=== PATIENT | female | born 1935 | race Caucasian/White ===

== ENCOUNTER 2016-10-31 15:37 | Emergency (ER) | payer MEDICARE ==
[2016-10-31] MEDS ORDERED: SODIUM CHLORIDE 0.9% (FLUSH) 10 ML SYG IV PRN (15:49)
--- NOTE | 2016-10-31 16:41 | RAD ---
NAME: FREIDA HAMMONDS REGISTERPROCEDURE: XR CHEST 1 VIEWORDER DATE: 10/31/2016 3:51 PM CSTACCESSION NUMBER: [id number] Clinical History: sob Indication: Same as above Comparison: 12/15/2010 Technique: Single projection of the chest was done. Findings: Note is again made of a dorsal column stimulator in the thoracic spinal canal. Benign calcification in the metastatic lung disease is again seen bilaterally. There are underlying changes of COPD. Stable right hilar and infrahilar lymphadenopathy is again noted . There are no discrete airspace infiltrates, pneumothoraces or pleural effusions. The pulmonary vascularity is normal. The cardiomediastinal contour is stable . Impression: There is no acute pleural-parenchymal process seen in the imaged lung matamoros. Location of Interpretation: Teleradiology Electronically signed by: Trae Ramachandran MD 10/31/2016 4:40 PM LEARNING TECHNOLOGIST
--- NOTE | 2016-10-31 16:58 | RAD ---
EXAM DESCRIPTION: Abdomen Flat Upright CLINICAL HISTORY: ABD FEEL FULL; PERITONEAL DIALYSIS; CONSTIPATION COMPARISON: September 11, 2014 FINDINGS: Supine and upright images of the abdomen were submitted. Dorsal stimulating catheters are noted within the right side of the abdomen extending into the thoracic spine. There is a catheter projecting over the left abdomen and pelvis. Patient is status post right hip arthroplasty. There is a moderate amount of stools within the colon without evidence of bowel obstruction. The upright images not included in the diaphragms. IMPRESSION: No acute abnormalities. Electronically signed by: Michele Reyna MD 10/31/2016 4:57 PM SALES ADMINISTRATOR
--- NOTE | 2016-10-31 17:00 | RAD ---
EXAM DESCRIPTION: Abdomen Lat/Decubitus CLINICAL HISTORY: ABD FEEL FULL; PERITONEAL DIALYSIS; CONSTIPATION COMPARISON: Same day earlier time IMPRESSION: Decubitus image of the abdomen was submitted. There is no free air. Electronically signed by: Michele Reyna MD 10/31/2016 4:59 PM PRODUCTION SUPPORT MANAGER
[2016-10-31 18:25] VITALS: BP 121/69; O2SAT 93
--- NOTE | 2016-10-31 18:35 | ED.PDOC ---
History of Present Illness - General Chief Complaint: Respiratory Problem Stated Complaint: shortness of breath Time Seen by Provider: 10/31/16 15:46 Source: patient, family Exam Limitations: no limitations Additional Information: PERITIONAL HOME DIALYSIS. DAUGHTER SAYS FOR PAST 3 D, DIALYSIS IS RETURNING 300 ML LESS THAN INFUSING, SO CONCERN FOR RETAINING FLUID. H/O HTN, CRF, DIALYSIS. 2 D FEELS INCR ABD FULLNESS, RESULTING IN SOB. CHRONIC CONSTIPATION , NO BM OVER 4 D. DIDN'T DO DIALYSIS THIS AM. - History of Present Illness Severity: moderate Possible Cause: unknown cause Improving Factors: nothing Worsening Factors: nothing Allergies/Adverse Reactions: Allergies NO KNOWN ALLERGY Allergy (Verified 09/11/14 16:59) Home Medications: Ambulatory Orders HYDROcodone 7.5MG/APAP 325MG [[place] 7.5/325] 1 tab PO Q4H PRN 09/11/14 Amitriptyline HCl 150 mg PO BEDTIME 10/31/16 Carvedilol 25 mg PO BID 10/31/16 Potassium Binder 1 - 2 each PO DAILY 10/31/16 Spironolactone 25 mg PO DAILY 10/31/16 Review of Systems - Review of Systems Constitutional: States: no symptoms reported EENTM: States: no symptoms reported Respiratory: States: orthopnea, short of breath. Denies: cough, wheezing Cardiology: Denies: chest pain, palpitations Gastrointestinal/Abdominal: States: constipation, other - ABD FULLNESS BUT NO PAIN. Genitourinary: States: no symptoms reported Musculoskeletal: States: no symptoms reported Skin: States: no symptoms reported Neurological: States: no symptoms reported Endocrine: States: no symptoms reported Hematologic/Lymphatic: States: no symptoms reported All other Systems: Reviewed and Negative Past Medical History (General) - Patient Medical History Hx Seizures: No Hx Stroke: No Hx Dementia: No Hx Asthma: No Hx of COPD: No Hx Cardiac Disorders: Yes - cardiac stents Hx Congestive Heart Failure: No Hx Pacemaker: No Hx Hypertension: Yes Hx Thyroid Disease: No Hx Diabetes: No Hx Gastroesophageal Reflux: No Hx Renal Disease: Yes - CRF - 1.5 yrs CAPD dialysis Hx Cancer: No Hx of HIV: No Hx Hepatitis C: No Hx MRSA: No - Vaccination History Hx Tetanus, Diphtheria Vaccination: Yes Hx Influenza Vaccination: Yes - 2015 Hx Pneumococcal Vaccination: Yes - 2014 - Social History Hx Tobacco Use: No Hx Chewing Tobacco Use: No Hx Alcohol Use: No Hx Substance Use: No Hx Substance Use Treatment: No Hx Depression: No Hx Physical Abuse: No Hx Emotional Abuse: No Hx Suspected Abuse: No - Female History Patient : No Family Medical History - Family History Mother Family History: No Known Living Status: Hx Family Cancer: Yes - breast Physical Exam - Physical Exam General Appearance: Alert, Well Hydrated Eyes, Ears, Nose, Throat Exam: PERRL/EOMI, normal ENT inspection Neck: non-tender, full range of motion Respiratory: chest non-tender, no respiratory distress, no accessory muscle use , crackles Cardiovascular/Chest: normal peripheral pulses, regular rate, rhythm, no murmur , other - MILD JVD. Peripheral Pulses: radial,right: 2+ Gastrointestinal/Abdominal: normal bowel sounds, non tender, other - ABDOMEN WITH POS FLUID WAVE. NTTP. NO G/R. Extremity: normal range of motion, non-tender, other - POS BLE EDEMA. Neurologic: fiberglass grinder II-XII nml as tested, oriented x 3 Skin Exam: normal color, warm/dry Lymphatic: no adenopathy Progress - Progress Progress: 10/31/16 19:25 CXR AND AXR NEG, EXCEPT SIGNIFICANT STOOL IN COLON. BNP 1340. DX: DYSPNEA, HYPOXIA, CONSTIPATION, CHF, PERITONEAL DIALYSIS NOT FUNCTIONING PROPERLY - TRANSFERRING VIA AMBULANCE TO [facility], WHERE PT'S PULMONARY FUNCTION TECHNOLOGIST (DR. CHERYL KUMARI) IS. DR JONES IN ER ACCEPTING. VSS AND PT NOT IN ABD PAIN THUS NOT CLINICALLY C/W SPONTANEOUS BACTERIAL PERITONITIS. [facility] Departure - Departure Clinical Impression: Heart failure, Hypoxia, Acute dyspnea, Constipation by delayed colonic transit , Peritoneal dialysis catheter dysfunction Disposition: Transfer to Hospital Departure Forms: ED Discharge - Pt. Copy, Patient Portal Self Enrollment Home Medications: Ambulatory Orders HYDROcodone 7.5MG/APAP 325MG [[place] 7.5/325] 1 tab PO Q4H PRN 09/11/14 Amitriptyline HCl 150 mg PO BEDTIME 10/31/16 Carvedilol 25 mg PO BID 10/31/16 Potassium Binder 1 - 2 each PO DAILY 10/31/16 Spironolactone 25 mg PO DAILY 10/31/16 Transfer to Outside Facility - Transfer Information Accepting Facility: [place], [place] Reason for Transfer: specialized care not available
[2016-10-31 19:36] VITALS: TEMP 99
--- NOTE | 2016-11-21 23:54 | RAD ---
EXAM DESCRIPTION: Abdomen Flat Upright CLINICAL HISTORY: ABD FEEL FULL; PERITONEAL DIALYSIS; CONSTIPATION COMPARISON: September 11, 2014 FINDINGS: Supine and upright images of the abdomen were submitted. Dorsal stimulating catheters are noted within the right side of the abdomen extending into the thoracic spine. There is a catheter projecting over the left abdomen and pelvis. Patient is status post right hip arthroplasty. There is a moderate amount of stools within the colon without evidence of bowel obstruction. The upright images not included in the diaphragms. IMPRESSION: No acute abnormalities. Electronically signed by: Michele Reyna MD 10/31/2016 4:57 PM GLOBAL DIRECTOR AIR AND CLIMATE CHANGE
--- NOTE | 2016-11-21 23:54 | RAD ---
NAME: FREIDA HAMMONDS REGISTERPROCEDURE: XR CHEST 1 VIEWORDER DATE: 10/31/2016 3:51 PM CSTACCESSION NUMBER: [id number] Clinical History: sob Indication: Same as above Comparison: 12/15/2010 Technique: Single projection of the chest was done. Findings: Note is again made of a dorsal column stimulator in the thoracic spinal canal. Benign calcification in the metastatic lung disease is again seen bilaterally. There are underlying changes of COPD. Stable right hilar and infrahilar lymphadenopathy is again noted . There are no discrete airspace infiltrates, pneumothoraces or pleural effusions. The pulmonary vascularity is normal. The cardiomediastinal contour is stable . Impression: There is no acute pleural-parenchymal process seen in the imaged lung matamoros. Location of Interpretation: Teleradiology Electronically signed by: Trae Ramachandran MD 10/31/2016 4:[address] PHOTOGRAPHER
--- NOTE | 2016-11-21 23:54 | RAD ---
EXAM DESCRIPTION: Abdomen Lat/Decubitus CLINICAL HISTORY: ABD FEEL FULL; PERITONEAL DIALYSIS; CONSTIPATION COMPARISON: Same day earlier time IMPRESSION: Decubitus image of the abdomen was submitted. There is no free air. Electronically signed by: Michele Reyna MD 10/31/2016 4:59 PM GMAT TUTOR
== END 2016-10-31 19:20 | disposition short-term general hospital (02) ==
LOC: ER 15:37
DX: T85.611A Breakdown (mechanical) of intraperitoneal dialysis catheter, initial encounter (principal); K59.01 Slow transit constipation; I13.2 Hypertensive heart and chronic kidney disease with heart failure and with stage 5 chronic kidney disease, or end stage renal disease; I50.9 Heart failure, unspecified; N18.6 End stage renal disease; Z99.2 Dependence on renal dialysis; Z98.61 Coronary angioplasty status; R09.02 Hypoxemia; Z79.899 Other long term (current) drug therapy

== ENCOUNTER 2017-05-24 10:25 | Emergency (ER) | payer MEDICARE ==
[2017-05-24 10:58] VITALS: TEMP 98.2
[2017-05-24] MEDS ORDERED: SODIUM CHLORIDE 0.9% (FLUSH) 10 ML SYG IV PRN (11:20)
[2017-05-24] MEDS ORDERED: ASPIRIN TABLET 325 MG TAB PO ONE (11:20)
--- NOTE | 2017-05-24 11:25 | ED.PDOC ---
History of Present Illness - General Chief Complaint: Respiratory Problem Stated Complaint: shortness of breath Time Seen by Provider: 05/24/17 11:17 Source: patient, family Exam Limitations: no limitations - History of Present Illness Initial Comments: PT BROUGHT TO THE ED BY HER DAUGHTER WHO STATES THAT PT CALLED HER THIS MORNING STATING THAT SHE NEEDED HELP. PTS DAUGHTER STATES THAT SHE NOTICED PTS SPEECH WAS SLURRED AT THAT TIME. SHE WENT TO PTS HOUSE TO FIND HER CONFUSED. SHE REPORTS PT HAD BEEN COMPLAINING OF HEADACHE ON TUESDAY AND TUESDAY AND HAS HAD INTERMITTENT EPISODES OF SOB AND COUGH. PT DENIES CHEST PAIN OR HEADACHE AT THIS TIME. Timing/Duration: intermittent Severity: moderate Improving Factors: rest Worsening Factors: movement Associated Symptoms: cough Allergies/Adverse Reactions: Allergies NO KNOWN ALLERGY Allergy (Verified 05/24/17 11:30) Home Medications: Ambulatory Orders Amitriptyline HCl 150 mg PO BEDTIME 10/31/16 Carvedilol 25 mg PO BID 10/31/16 Spironolactone 25 mg PO DAILY 10/31/16 Acetaminophen [Arthritis Pain] 650 mg PO PRN PRN 05/24/17 Ibuprofen [Motrin] 400 mg PO PRN PRN 05/24/17 Sevelamer Carbonate [Renvela] 1,600 mg PO TID 05/24/17 Review of Systems - Review of Systems Constitutional: Denies: chills, fever EENTM: Denies: blurred vision, nose congestion Respiratory: States: see HPI, cough, short of breath Cardiology: Denies: chest pain, palpitations Gastrointestinal/Abdominal: Denies: abdominal pain, nausea Genitourinary: Denies: dysuria, frequency Musculoskeletal: Denies: back pain, joint swelling Skin: Denies: change in color, dryness Neurological: States: see HPI, depressed - PT RECENTLY LOST OF 63 YEARS , headache. Denies: pre-existing deficit, tingling, weakness Past Medical History (General) - Patient Medical History Hx Seizures: No Hx Stroke: No Hx Dementia: No Hx Asthma: No Hx of COPD: No Hx Cardiac Disorders: Yes - cardiac stents Hx Congestive Heart Failure: No Hx Pacemaker: No Hx Hypertension: Yes Hx Thyroid Disease: No Hx Diabetes: No Hx Gastroesophageal Reflux: No Hx Renal Disease: Yes - CRF - 1.5 yrs CAPD dialysis Hx Cancer: No Hx of HIV: No Hx Hepatitis C: No Hx MRSA: No Surgical History: other - Vaccination History Hx Tetanus, Diphtheria Vaccination: Yes Hx Influenza Vaccination: Yes Hx Pneumococcal Vaccination: Yes - Social History Hx Tobacco Use: No Hx Chewing Tobacco Use: No Hx Alcohol Use: No Hx Substance Use: No Hx Substance Use Treatment: No Hx Depression: No Hx Physical Abuse: No Hx Emotional Abuse: No Hx Suspected Abuse: No - Activities of Daily Living Hospice Agency (if applicable):: None - Female History Patient is a Female of Child Bearing Age (10 -59 yrs old): No Patient : No Family Medical History - Family History Mother Family History: No Known Living Status: Hx Family Cancer: Yes - breast Physical Exam - Physical Exam General Appearance: Alert, Comfortable, No apparent distress, Well Developed, Well Groomed Ears, Nose, Throat: hearing grossly normal Neck: normal inspection Respiratory: lungs clear, normal breath sounds, no respiratory distress Cardiovascular/Chest: regular rate, rhythm, systolic murmur Gastrointestinal/Abdominal: non tender, soft, no organomegaly Back Exam: normal inspection Extremity: non-tender, normal inspection Neurologic: no motor/sensory deficits, alert, normal mood/affect, other - ORIENTED TO PERSON/PLACE. PT REPORTS IT IS 2015, SLIGHTLY SLURRED SPEECH, PT EXHIBITS AN EXPRESSIVE DYSPHASIA. Skin Exam: normal color, warm/dry Progress - Progress Progress: 05/24/17 12:40 PT RESTING COMFORTABLY, NO CHANGE IN NEUROLOGIC FINDINGS. LABS AND CT FINDINGS DISCUSSED. DISCUSSED PLAN TO TRANSFER TO [facility]. BP ELEVATED WILL ORDER IV LABETALOL. - Results/Orders Results/Orders: 05/24/17 11:20 Telemetry .ONCE Sodium Chloride 0.9% (Flush) [Saline Flush Syringe] 10 ml IV PRN PRN 05/24/17 11:21 UA [URINALYSIS] Stat 05/24/17 11:30 EKG STAT Laboratory Results WBC 8.0 K/mm3 (4.8-10.8) 05/24/17 11:40 RBC 3.37 M/mm3 (4.20-5.40) L 05/24/17 11:40 Hgb 11.7 gm/dL (12.0-16.0) L 05/24/17 11:40 Hct 35.1 % (36.0-47.0) L 05/24/17 11:40 MCV 104.1 fl (81.0-99.0) H 05/24/17 11:40 MCH 34.7 pg (27.0-31.0) H 05/24/17 11:40 MCHC 33.3 g/dL (33.0-37.0) 05/24/17 11:40 RDW 15.5 % (11.5-14.5) H 05/24/17 11:40 Plt Count 166 K/mm3 (130-400) 05/24/17 11:40 MPV 8.1 fl (7.40-10.4) 05/24/17 11:40 Absolute Neuts (auto) 5.10 K/uL (1.8-6.8) 05/24/17 11:40 Absolute Lymphs (auto) 2.20 K/uL (1.0-3.4) 05/24/17 11:40 Absolute Monos (auto) 0.40 K/uL (0.2-0.8) 05/24/17 11:40 Absolute Eos (auto) 0.30 K/uL (0.0-0.4) 05/24/17 11:40 Absolute Basos (auto) 0.00 K/uL (0.0-0.1) 05/24/17 11:40 Neutrophils % 63.6 % (42.0-78.0) 05/24/17 11:40 Lymphocytes % 27.0 % (20.0-50.0) 05/24/17 11:40 Monocytes % 5.4 % (2.0-9.0) 05/24/17 11:40 Eosinophils % 3.4 % (1.0-5.0) 05/24/17 11:40 Basophils % 0.6 % (0.0-2.0) 05/24/17 11:40 PT 12.6 SECONDS (9.4-12.5) H 05/24/17 11:40 INR 1.120 05/24/17 11:40 PTT (SP) 31.1 SECONDS (25.1-36.5) 05/24/17 11:40 Sodium 138 mmol/L (135-145) 05/24/17 11:40 Potassium 4.6 mmol/L (3.6-5.0) 05/24/17 11:40 Chloride 97 mmol/L (101-111) L 05/24/17 11:40 Carbon Dioxide 29 mmol/L (21-31) 05/24/17 11:40 Anion Gap 16.6 (12-18) 05/24/17 11:40 BUN 47 mg/dL (7-18) H 05/24/17 11:40 Creatinine 5.88 mg/dL (0.6-1.3) H 05/24/17 11:40 BUN/Creatinine Ratio 8.0 (10-20) L 05/24/17 11:40 POC Glucose 123 mg/dL (70-105) H 05/24/17 11:40 Random Glucose 124 mg/dL (70-105) H 05/24/17 11:40 Serum Osmolality 289.4 mOsm/L (275-295) 05/24/17 11:40 Calcium 9.4 mg/dL (8.4-10.2) 05/24/17 11:40 Total Bilirubin 0.4 mg/dL (0.2-1.0) 05/24/17 11:40 AST 19 IU/L (10-42) 05/24/17 11:40 ALT 10 IU/L (10-60) 05/24/17 11:40 Alkaline Phosphatase 100 IU/L (42-121) 05/24/17 11:40 Creatine Kinase 27 IU/L (26-140) 05/24/17 11:40 CK-MB (CK-2) 1.8 ng/mL (0.0-4.4) 05/24/17 11:40 CK-MB (CK-2) % Not Reportable 05/24/17 11:40 Troponin I 0.03 ng/mL (0.01-0.05) 05/24/17 11:40 B-Natriuretic Peptide 3850.0 pg/ml (0-100) H* 05/24/17 11:40 Serum Total Protein 7.2 gm/dL (6.4-8.2) 05/24/17 11:40 Albumin 3.0 g/dl (3.2-5.5) L 05/24/17 11:40 Globulin 4.2 gm/dL (2.3-3.5) H 05/24/17 11:40 Albumin/Globulin Ratio 0.7 (1.1-1.9) L 05/24/17 11:40 - EKG/XRAY/CT EKG: Sinus - @66BPM, NL AXIS, RBBB, no ST T wave changes, Changed from - 10/31/16 , RBBB IS NEW - Additional EKG/XRAY/Consults XRAY #2: chest Comments: PULMONARY VASCULAR CONGESTION, SMALL RIGHT PLEURAL EFFUSION. Departure - Departure Clinical Impression: Cerebral vascular accident, Chronic renal disease, Uncontrolled hypertension Time of Disposition: 12:54 Disposition: Transfer to Hospital Condition: Fair Departure Forms: ED Discharge - Pt. Copy, Patient Portal Self Enrollment Referrals: Simone Olmos MD [Primary Care Provider] - 1-2 Weeks Home Medications: Ambulatory Orders Amitriptyline HCl 150 mg PO BEDTIME 10/31/16 Carvedilol 25 mg PO BID 10/31/16 Spironolactone 25 mg PO DAILY 10/31/16 Acetaminophen [Arthritis Pain] 650 mg PO PRN PRN 05/24/17 Ibuprofen [Motrin] 400 mg PO PRN PRN 05/24/17 Sevelamer Carbonate [Renvela] 1,600 mg PO TID 05/24/17 Transfer to Outside Facility - Transfer Information Accepting Provider:: DR. GONZALES Accepting Facility: [facility] Reason for Transfer: required specialist not available
--- NOTE | 2017-05-24 11:38 | RAD ---
EXAM DESCRIPTION: Chest,1 View CLINICAL HISTORY: Shortness of breath FINDINGS/ IMPRESSION: Comparison 10/31/2016 Interval development of cardiomegaly with vascular congestion and interstitial edema. Small right pleural effusion. Calcified granuloma in the right upper lobe. Electronically signed by: Simone Murphy MD 05/24/2017 11:36 AM CDT
--- NOTE | 2017-05-24 12:23 | CT ---
EXAM DESCRIPTION: CT head without contrast CLINICAL HISTORY: Confusion. Altered mental status. Altered level of consciousness. COMPARISON: None. TECHNIQUE: Noncontrast spiral CT of the brain. This exam was performed according to our departmental dose-optimization program, which includes automated exposure control, adjustment of the mA and/or kV according to patient size and/or use of iterative reconstruction technique FINDINGS: No intracranial hemorrhage, diagnostic acute cortical infarction or mass lesion. Decreased density in the white matter bilateral cerebral hemispheres, nonspecific likely remote microvascular ischemia. Subtle questionable asymmetric lower density left periventricular adjacent to the body of the lateral ventricle extending down to posterior column internal capsule, age-indeterminate ischemia. Remote lacunar infarct in the peripheral right cerebellar hemispheres and left paramedian superior cerebellar hemisphere Ventricles are normal in size and configuration atherosclerotic vascular calcifications in the cavernous carotid arteries and left vertebral artery. No calvarial or skullbase fracture. No fluid in the paranasal sinuses or mastoid air cells IMPRESSION: White matter disease, nonspecific likely remote microvascular ischemia. Remote infarcts in the cerebellum with regions of encephalomalacia. Subtle questionable asymmetric hypodensity left periventricular extending into the internal capsule. CT is insensitive for early evaluation of acute stroke. If there is clinical concern for acute ischemia, an MRI may be considered. Electronically signed by: Simone Murphy MD 05/24/2017 12:22 PM CDT
[2017-05-24] MEDS ORDERED: LABETALOL INJ 5 MG/ML VIAL IV ONE (12:38)
[2017-05-24] MEDS ORDERED: MECLIZINE HCL 12.5 MG TAB PO ONE (13:27)
[2017-05-24] MEDS ORDERED: ONDANSETRON INJ 4 MG/2 ML VIAL IV ONE (13:28)
[2017-05-24 13:40] VITALS: BP 189/83; O2SAT 93
== END 2017-05-24 13:55 | disposition short-term general hospital (02) ==
LOC: ER 10:25
DX: I63.9 Cerebral infarction, unspecified (principal); I12.0 Hypertensive chronic kidney disease with stage 5 chronic kidney disease or end stage renal disease; N18.6 End stage renal disease; Z98.61 Coronary angioplasty status; F32.9 Major depressive disorder, single episode, unspecified; Z79.899 Other long term (current) drug therapy
CPT/HCPCS: 36415; 70450; 71010; 80053; 82550; 82553; 82948; 83880; 84484; 85025; 85610; 85730; 93005; J2405

== ENCOUNTER → 2017-06-17 | Outpatient (CLI) | payer MEDICARE | LOC: GT 06:49 | PROVIDERS: ATTEND Family Medicine | DX: E78.00 Pure hypercholesterolemia, unspecified (principal) ==

== ENCOUNTER 2017-08-11 02:35 | Emergency (ER) | payer MEDICARE ==
[2017-08-11] MEDS ORDERED: NITROGLYCERIN 0.4 MG 25 EA TAB SL ONE (03:08)
[2017-08-11] MEDS ORDERED: ASPIRIN (CHEWABLE) 81 MG TAB PO ONE (03:08)
--- NOTE | 2017-08-11 03:12 | ED.PDOC ---
History of Present Illness - General Chief Complaint: Cardiovascular Problem Stated Complaint: chest feels funny, shortness of breath Time Seen by Provider: 08/11/17 02:45 Source: patient, RN notes reviewed, Vital Signs reviewed Exam Limitations: no limitations - History of Present Illness Initial Comments: Patient comes in with c/o chest pressure, SOB and nausea that started @ ~ 21:30 yesterday. She has been having these symptoms intermittently for the past 3 weeks. She did see the Nurse Practitioner today @ her PCP office. who gave her nitroglycerine to use as needed. She did not take any with her chest pressure tonight. Timing/Duration: 4-6 hours Severity/Quality: mild, pressure Location: substernal Chest Pain Radiation: no radiation Activities at Onset: rest Prior Chest Pain/Cardiac Workup: other - CHF Improving Factors: nothing Worsening Factors: nothing Nitro Today/Relief: no nitro taken today Aspirin Treatment Today: 81 mg x 1, provided at home Associated Symptoms: nausea/vomiting, shortness of breath Allergies/Adverse Reactions: Allergies NO KNOWN ALLERGY Allergy (Verified 08/11/17 03:10) Home Medications: Ambulatory Orders Amitriptyline HCl 150 mg PO BEDTIME 10/31/16 Carvedilol 25 mg PO BID 10/31/16 Spironolactone 25 mg PO DAILY 10/31/16 Acetaminophen [Arthritis Pain] 650 mg PO PRN PRN 05/24/17 Ibuprofen [Motrin] 400 mg PO PRN PRN 05/24/17 Sevelamer Carbonate [Renvela] 1,600 mg PO TID 05/24/17 Review of Systems - Review of Systems Constitutional: Denies: diaphoresis, malaise EENTM: States: no symptoms reported Respiratory: States: see HPI, short of breath. Denies: cough Cardiology: States: see HPI. Denies: chest pain, palpitations Gastrointestinal/Abdominal: States: see HPI, nausea. Denies: abdominal pain Musculoskeletal: States: no symptoms reported Skin: States: no symptoms reported Neurological: States: no symptoms reported All other Systems: No Change from Baseline Past Medical History (General) - Patient Medical History Hx Seizures: No Hx Stroke: No Hx Dementia: No Hx Asthma: No Hx of COPD: No Hx Cardiac Disorders: Yes - cardiac stents Hx Congestive Heart Failure: No Hx Pacemaker: No Hx Hypertension: Yes Hx Thyroid Disease: No Hx Diabetes: No Hx Gastroesophageal Reflux: No Hx Renal Disease: Yes - CRF - 1.5 yrs CAPD dialysis Hx Cancer: No Hx of HIV: No Hx Hepatitis C: No Hx MRSA: No - Vaccination History Hx Tetanus, Diphtheria Vaccination: Yes Hx Influenza Vaccination: Yes Hx Pneumococcal Vaccination: Yes - Social History Hx Tobacco Use: No Hx Chewing Tobacco Use: No Hx Alcohol Use: No Hx Substance Use: No Hx Substance Use Treatment: No Hx Depression: No Hx Physical Abuse: No Hx Emotional Abuse: No Hx Suspected Abuse: No - Female History Patient : No Family Medical History - Family History Mother Family History: No Known Living Status: Hx Family Cancer: Yes - breast Physical Exam - Physical Exam General Appearance: Alert, Comfortable, No apparent distress, Well Developed, Well Groomed, Well Hydrated, Well Nourished Neck: supple, normal inspection Respiratory: no respiratory distress, no accessory muscle use, crackles - Bilateral bases Cardiovascular/Chest: regular rate, rhythm, no gallop, no JVD, systolic murmur Extremity: normal range of motion, normal inspection Neurologic: alert, normal mood/affect, oriented x 3 Skin Exam: normal color, warm/dry Progress - Progress Progress: 08/11/17 05:01 Lasix 40mg IV given - Results/Orders Results/Orders: Laboratory Tests 08/11/17 08/11/17 03:55 03:55 WBC 7.9 RBC 3.39 L Hgb 12.0 Hct 35.9 L MCV 105.9 H MCH 35.3 H MCHC 33.6 RDW 16.8 H Plt Count 169 MPV 8.2 Absolute Neuts (auto) 4.90 Absolute Lymphs (auto) 2.10 Absolute Monos (auto) 0.60 Absolute Eos (auto) 0.20 Absolute Basos (auto) 0.10 Neutrophils % 62.1 Lymphocytes % 26.3 Monocytes % 7.6 Eosinophils % 2.8 Basophils % 1.2 Normal RBC Morphology 2+macrocytosis Sodium 137 Potassium 4.8 Chloride 96 L Carbon Dioxide 30 Anion Gap 15.8 BUN 41 H Creatinine 5.17 H BUN/Creatinine Ratio 7.9 L Random Glucose 96 Serum Osmolality 283.8 Calcium 9.5 Total Bilirubin 0.5 AST 16 ALT 11 Alkaline Phosphatase 99 Creatine Kinase 25 L CK-MB (CK-2) 1.7 Troponin I 0.02 B-Natriuretic Peptide > 5000.0 H* Serum Total Protein 7.0 Albumin 3.0 L Globulin 4.0 H Albumin/Globulin Ratio 0.8 L - EKG/XRAY/CT EKG: Jefry, Sinus, no ST T wave changes, Unchanged from - 10/31/16 Comments: Rate 57 XRAY: chest - Cardiomegaly with pulmonary vascular congestion Departure - Departure Clinical Impression: Congestive heart failure Qualifiers: Congestive heart failure type: unspecified congestive heart failure type Congestive heart failure chronicity: acute on chronic Qualified Code(s): I50.9 - Heart failure, unspecified Time of Disposition: 05:04 Disposition: Transfer to Hospital Condition: Poor Departure Forms: ED Discharge - Pt. Copy, Patient Portal Self Enrollment Referrals: Simone Olmos MD [Primary Care Provider] - 1-2 Weeks Home Medications: Ambulatory Orders Amitriptyline HCl 150 mg PO BEDTIME 10/31/16 Carvedilol 25 mg PO BID 10/31/16 Spironolactone 25 mg PO DAILY 10/31/16 Acetaminophen [Arthritis Pain] 650 mg PO PRN PRN 05/24/17 Ibuprofen [Motrin] 400 mg PO PRN PRN 05/24/17 Sevelamer Carbonate [Renvela] 1,600 mg PO TID 05/24/17 Transfer to Outside Facility - Transfer Information Accepting Provider:: Dr. Lynne Miguel Accepting Facility: [facility] Reason for Transfer: required specialist not available - Dialysis
--- NOTE | 2017-08-11 03:42 | RAD ---
EXAM DESCRIPTION: Chest,1 View CLINICAL HISTORY: CP w/ SOB COMPARISON: 05/24/2017 FINDINGS: Single frontal view of the chest. Cardiomegaly. Leads overlie the chest. Pulmonary vascular congestion. Blunting of the right costophrenic angle. Dorsal generator leads. No consolidation, pneumothorax, or pleural effusion. No displaced rib fractures identified. Upper abdominal soft tissues are unremarkable. IMPRESSION: 1. Cardiomegaly with pulmonary vascular congestion. Electronically signed by: Tam Rincon 08/11/2017 3:41 AM COMMERCIAL ILLUSTRATOR
[2017-08-11 04:15] VITALS: O2SAT 92
[2017-08-11] MEDS ORDERED: FUROSEMIDE INJ 40 MG/4 ML VIAL IV ONE (04:33)
[2017-08-11 07:11] VITALS: BP 182/66; TEMP 98.2
== END 2017-08-11 06:32 | disposition short-term general hospital (02) ==
LOC: ER 02:35
DX: I13.2 Hypertensive heart and chronic kidney disease with heart failure and with stage 5 chronic kidney disease, or end stage renal disease (principal); N18.6 End stage renal disease; I50.9 Heart failure, unspecified; Z99.2 Dependence on renal dialysis; Z98.61 Coronary angioplasty status
CPT/HCPCS: 71010; 80053; 82550; 82553; 83880; 84484; 85025; 93005; J1940

== ENCOUNTER 2017-08-24 17:26 | Emergency (ER) | payer MEDICARE ==
[2017-08-24 17:36] VITALS: TEMP 98.7; O2SAT 98
[2017-08-24] MEDS ORDERED: ACETAMINOPHEN 500 MG TAB PO ONE (17:54)
--- NOTE | 2017-08-24 17:57 | ED.PDOC ---
History of Present Illness - General Chief Complaint: Trauma Stated Complaint: fall Time Seen by Provider: 08/24/17 17:46 Source: patient Exam Limitations: no limitations - History of Present Illness Initial Comments: PT REPORTS FALLING AND HITTING HER HEAD ON THE FLOOR WHILE ATTEMPTING TO TRANSFER INTO A WHEELCHAIR AFTER DIALYSIS. PT DENIES LOC BUT DOES REPORT A MILD HEADACHE. PT DENIES DIZZINESS PRIOR TO THE FALL. Timing/Duration: 1/2 hour Severity: moderate Improving Factors: nothing Worsening Factors: nothing Associated Symptoms: headaches Allergies/Adverse Reactions: Allergies NO KNOWN ALLERGY Allergy (Verified 08/11/17 03:10) Home Medications: Ambulatory Orders Amitriptyline HCl 150 mg PO BEDTIME 10/31/16 Carvedilol 25 mg PO BID 10/31/16 Spironolactone 25 mg PO DAILY 10/31/16 Acetaminophen [Arthritis Pain] 650 mg PO PRN PRN 05/24/17 Ibuprofen [Motrin] 400 mg PO PRN PRN 05/24/17 Sevelamer Carbonate [Renvela] 1,600 mg PO TID 05/24/17 Review of Systems - Review of Systems Constitutional: Denies: chills, fever EENTM: Denies: nose congestion, throat pain Respiratory: Denies: cough, short of breath Cardiology: Denies: chest pain, palpitations, syncope Gastrointestinal/Abdominal: Denies: nausea, vomiting Genitourinary: Denies: dysuria, frequency Musculoskeletal: Denies: joint pain, joint swelling Skin: Denies: change in color, dryness Neurological: States: see HPI, headache. Denies: numbness, paresthesia Endocrine: States: no symptoms reported Hematologic/Lymphatic: States: no symptoms reported Past Medical History (General) - Patient Medical History Hx Seizures: No Hx Stroke: No Hx Dementia: No Hx Asthma: No Hx of COPD: No Hx Cardiac Disorders: Yes - cardiac stents Hx Congestive Heart Failure: No Hx Pacemaker: No Hx Hypertension: Yes Hx Thyroid Disease: No Hx Diabetes: No Hx Gastroesophageal Reflux: No Hx Renal Disease: Yes - CRF - 1.5 yrs CAPD dialysis Hx Cancer: No Hx of HIV: No Hx Hepatitis C: No Hx MRSA: No Surgical History: other - Vaccination History Hx Tetanus, Diphtheria Vaccination: Yes Hx Influenza Vaccination: Yes Hx Pneumococcal Vaccination: Yes - Social History Hx Tobacco Use: No Hx Chewing Tobacco Use: No Hx Alcohol Use: No Hx Substance Use: No Hx Substance Use Treatment: No Hx Depression: No Hx Physical Abuse: No Hx Emotional Abuse: No Hx Suspected Abuse: No - Female History Patient : No Family Medical History - Family History Mother Family History: No Known Living Status: Hx Family Cancer: Yes - breast Physical Exam - Physical Exam General Appearance: Alert, Comfortable, No apparent distress Eye Exam: bilateral normal Ears, Nose, Throat: hearing grossly normal, normal ENT inspection Neck: non-tender, full range of motion, supple, normal inspection Respiratory: chest non-tender Back Exam: normal inspection, no vertebral tenderness Extremity: normal range of motion, non-tender, normal inspection Neurologic: alert, normal mood/affect, oriented x 3 Skin Exam: normal color, warm/dry Progress - Progress Progress: 08/24/17 18:52 PT RESTING COMFORTABLY AND REPORTS IMPROVEMENT IN HEADACHE AFTER TYLENOL. CT FINDINGS DISCUSSED. - EKG/XRAY/CT CT: HEAD/C-SPINE CT Ordered: Yes - NO ACUTE ABNORMALITIES. Departure - Departure Clinical Impression: Head injury Qualifiers: Encounter type: initial encounter Qualified Code(s): S09.90XA - Unspecified injury of head, initial encounter Time of Disposition: 18:53 Disposition: Discharge to Home or Self Care Condition: Good Departure Forms: ED Discharge - Pt. Copy, Patient Portal Self Enrollment Instructions: DI for Closed Head Injury Referrals: Simone Olmos MD [Primary Care Provider] - 1-2 Weeks Home Medications: Ambulatory Orders Amitriptyline HCl 150 mg PO BEDTIME 10/31/16 Carvedilol 25 mg PO BID 10/31/16 Spironolactone 25 mg PO DAILY 10/31/16 Acetaminophen [Arthritis Pain] 650 mg PO PRN PRN 05/24/17 Ibuprofen [Motrin] 400 mg PO PRN PRN 05/24/17 Sevelamer Carbonate [Renvela] 1,600 mg PO TID 05/24/17
--- NOTE | 2017-08-24 18:44 | CT ---
EXAM DESCRIPTION: Head CLINICAL HISTORY: HEAD INJURY S/P FALL COMPARISON: None Available TECHNIQUE: Contiguous axial CT images of the head were obtained. Coronal and sagittal reconstructions were created from the axial data. This exam was performed according to our departmental dose-optimization program, which includes automated exposure control, adjustment of the mA and/or kV according to patient size and/or use of iterative reconstruction technique. FINDINGS: There is no evidence of acute mass, mass effect, midline shift or hemorrhage. The ventricles and extra-axial CSF spaces are unremarkable. The brain parenchyma appears normal for the patient's age. No acute abnormalities of the bones is seen. IMPRESSION: No acute intracranial abnormality. Electronically signed by: Feliz Kovacs 08/24/2017 6:43 PM MACHINE FANCY STITCHER
--- NOTE | 2017-08-24 18:47 | CT ---
EXAM DESCRIPTION: CT CERVICAL SPINE CLINICAL HISTORY: HEAD INJURY S/P FALL COMPARISON: None. TECHNIQUE: Contiguous axial images of the cervical spine were obtained followed by reconstruction images.This exam was performed according to our departmental dose-optimization program, which includes automated exposure control, adjustment of the mA and/or kV according to patient size and/or use of iterative reconstruction technique. FINDINGS: There are numerous punctate calcifications in the pulmonary apices. There is no acute fracture or subluxation. There are degenerative changes. The prevertebral soft tissues are within normal limits. IMPRESSION: No acute fracture or subluxation. Electronically signed by: Feliz Kovacs 08/24/2017 6:46 PM [employer] MACHINE OPERATOR
[2017-08-24 19:06] VITALS: BP 179/75
== END 2017-08-24 19:06 | disposition home or self-care (01) ==
LOC: ER 17:26
DX: S09.90XA Unspecified injury of head, initial encounter (principal); I12.0 Hypertensive chronic kidney disease with stage 5 chronic kidney disease or end stage renal disease; N18.6 End stage renal disease; Z99.2 Dependence on renal dialysis; Z79.899 Other long term (current) drug therapy; W19.XXXA Unspecified fall, initial encounter; Y92.9 Unspecified place or not applicable

== ENCOUNTER 2017-09-01 20:08 | Emergency (ER) | payer MEDICARE ==
[2017-09-01] MEDS ORDERED: HYDROcodone 7.5MG/APAP 325MG 1 EA TAB ONE (20:31)
--- NOTE | 2017-09-01 22:50 | ED.PDOC ---
History of Present Illness - General Time Seen by Provider: 09/01/17 22:05 Source: patient Exam Limitations: no limitations - History of Present Illness Initial Comments: the patient is an 82-year-old female presenting to the emergency room secondary to pain. The patient slipped out of a chair yesterday and landed on the floor. She is having pain in her right hip and her right knee and her right ankle and her right shoulder.the pain has worsened over the last 24 hours. No gross deformity. No laceration. She did not hurt that much initially. The patient is a dialysis patient and has had higher blood pressures today with the pain. She does normally have pretty high blood pressures to start with. No headache altered mental status chest pain or shortness of breath. She is due for dialysis tomorrow. Timing/Duration: 24 hours Severity: moderate Improving Factors: immobilization Worsening Factors: movement Associated Symptoms: denies symptoms Allergies/Adverse Reactions: Allergies NO KNOWN ALLERGY Allergy (Verified 08/11/17 03:10) Home Medications: Ambulatory Orders Amitriptyline HCl 150 mg PO BEDTIME 10/31/16 Carvedilol 25 mg PO BID 10/31/16 Spironolactone 25 mg PO DAILY 10/31/16 Acetaminophen [Arthritis Pain] 650 mg PO PRN PRN 05/24/17 Ibuprofen [Motrin] 400 mg PO PRN PRN 05/24/17 Sevelamer Carbonate [Renvela] 1,600 mg PO TID 05/24/17 Review of Systems - Review of Systems Constitutional: States: malaise EENTM: States: no symptoms reported Respiratory: States: no symptoms reported Cardiology: States: no symptoms reported Gastrointestinal/Abdominal: States: no symptoms reported Genitourinary: States: no symptoms reported Musculoskeletal: States: see HPI Skin: States: no symptoms reported Neurological: States: no symptoms reported Endocrine: States: no symptoms reported All other Systems: No Change from Baseline Past Medical History (General) - Patient Medical History Hx Seizures: No Hx Stroke: No Hx Dementia: No Hx Asthma: No Hx of COPD: No Hx Cardiac Disorders: Yes - cardiac stents Hx Congestive Heart Failure: No Hx Pacemaker: No Hx Hypertension: Yes Hx Thyroid Disease: No Hx Diabetes: No Hx Gastroesophageal Reflux: No Hx Renal Disease: Yes - CRF - 1.5 yrs CAPD dialysis Hx Cancer: No Hx of HIV: No Hx Hepatitis C: No Hx MRSA: No - Vaccination History Hx Tetanus, Diphtheria Vaccination: Yes Hx Influenza Vaccination: Yes Hx Pneumococcal Vaccination: Yes - Social History Hx Tobacco Use: No Hx Chewing Tobacco Use: No Hx Alcohol Use: No Hx Substance Use: No Hx Substance Use Treatment: No Hx Depression: No Hx Physical Abuse: No Hx Emotional Abuse: No Hx Suspected Abuse: No - Female History Patient : No Family Medical History - Family History Mother Family History: No Known Living Status: Hx Family Cancer: Yes - breast Physical Exam - Physical Exam General Appearance: Alert Eye Exam: bilateral normal Ears, Nose, Throat: hearing grossly normal, normal ENT inspection, normal pharynx Neck: non-tender, supple Respiratory: lungs clear, normal breath sounds, no respiratory distress, no accessory muscle use Cardiovascular/Chest: normal peripheral pulses, no edema Peripheral Pulses: radial,right: 2+, radial,left: 2+, dorsalis pedis,right: 2+, dorsalis pedis,left: 2+ Gastrointestinal/Abdominal: non tender, soft Back Exam: no CVA tenderness, no vertebral tenderness Extremity: no pedal edema, no calf tenderness, normal capillary refill, other - the patient has obvious arthritic changes of her knees and her ankles. The lateral ankle is uncomfortable to palpation. The area entirely surrounding the right knee is uncomfortable to palpation and there is obvious chronic arthritic changes. No obvious crepitus. No laceration. Pelvis is stable. Neurologic: fourdrinier machine tender II-XII nml as tested, alert, normal mood/affect, oriented x 3 Skin Exam: normal color Progress - Results/Orders Results/Orders: x-rays of the right hip, right knee, right ankle, and right shoulder show no evidence of overt fracture or dislocation. She does have very significant arthritic changes particularly in the knee. She should expect to be sore from the fall for at least another couple of days. She needs to ambulate carefully so as to prevent further falls. She did have some significant hypertension today likely contributed to by pain, but did at least partially responded to clonidine. blood pressure is 160/80 by time of discharge. She should follow her blood pressures closely at home. She does need to keep follow-up tomorrow with dialysis. ER warnings are given for any significant worsening. she should follow-up with her primary care doctor next week as well. She should keep well- hydrated. Departure - Departure Clinical Impression: Fall at home Qualifiers: Encounter type: initial encounter Qualified Code(s): W19.XXXA - Unspecified fall, initial encounter; Y92.099 - Unspecified place in other non-institutional residence as the place of occurrence of the external cause Contusion Qualifiers: Contusion area: knee Laterality: right Disposition: Discharge to Home or Self Care Condition: Fair Instructions: DI for Contusion Diet: regular diet Activity: increase activity as tolerated Referrals: Simone Olmos MD [Primary Care Provider] - 1-2 Weeks Home Medications: Ambulatory Orders Amitriptyline HCl 150 mg PO BEDTIME 10/31/16 Carvedilol 25 mg PO BID 10/31/16 Spironolactone 25 mg PO DAILY 10/31/16 Acetaminophen [Arthritis Pain] 650 mg PO PRN PRN 05/24/17 Ibuprofen [Motrin] 400 mg PO PRN PRN 05/24/17 Sevelamer Carbonate [Renvela] 1,600 mg PO TID 05/24/17 Additional Instructions: x-rays of the right hip, right knee, right ankle, and right shoulder show no evidence of overt fracture or dislocation. She does have very significant arthritic changes particularly in the knee. She should expect to be sore from the fall for at least another couple of days. She needs to ambulate carefully so as to prevent further falls. She did have some significant hypertension today likely contributed to by pain, but did at least partially responded to clonidine. blood pressure is 160/80 by time of discharge. She should follow her blood pressures closely at home. She does need to keep follow-up tomorrow with dialysis. ER warnings are given for any significant worsening. she should follow-up with her primary care doctor next week as well. She should keep well- hydrated.
[2017-09-02 00:34] VITALS: BP 200/87; TEMP 97.9; O2SAT 92
== END 2017-09-01 23:20 | disposition home or self-care (01) ==
LOC: ER 20:08
DX: S80.01XA Contusion of right knee, initial encounter (principal); N18.6 End stage renal disease; I12.0 Hypertensive chronic kidney disease with stage 5 chronic kidney disease or end stage renal disease; Z79.899 Other long term (current) drug therapy; Z99.2 Dependence on renal dialysis; W07.XXXA Fall from chair, initial encounter; Y92.099 Unspecified place in other non-institutional residence as the place of occurrence of the external cause

== ENCOUNTER 2017-09-13 08:41 | Emergency (ER) | payer MEDICARE ==
[2017-09-13 09:01] VITALS: TEMP 97
--- NOTE | 2017-09-13 10:26 | RAD ---
EXAM DESCRIPTION: Chest,1 View CLINICAL HISTORY: Fall injury. Chest pain FINDINGS/ IMPRESSION: Comparison 08/11/2017 Heart size top limits normal. Vascular congestion. Mild increased interstitial markings compatible with minimal edema. No dense alveolar consolidation. No pleural effusion No pneumothorax or rib fracture Electronically signed by: Simone Murphy MD 09/13/2017 10:25 AM [facility]
--- NOTE | 2017-09-13 10:26 | CT ---
EXAM DESCRIPTION: CT cervical spine CLINICAL HISTORY: Recurrent falls. Evaluate for cervical spine fracture COMPARISON: None Available. TECHNIQUE: Spiral CT with multiplanar reformatted images FINDINGS: Advanced arthrosis between the anterior arch of C1 and the dens. Capsular hypertrophy and partial calcification without canal stenosis C2-3: Advanced right facet arthrosis. No canal or foraminal narrowing C3-4: Calcified disc osteophyte ridge abuts the ventral cord. Moderate facet arthrosis with mild foraminal narrowing C4-5: Large remote disc protrusion with calcification. Disc extends about 6 mm beyond the endplate with indentation of the left paracentral cord. AP dimension of the canal 8 mm. Moderate facet arthrosis with uncovertebral hypertrophy and [id number] foraminal narrowing C5-6: Left paracentral calcified disc protrusion about 4 mm beyond the endplate abutting the ventral cord. Moderate right and mild left facet arthrosis C6-7: Disc osteophyte ridge without canal stenosis. Mild left and moderate right facet arthrosis C7-T1: Moderate facet arthrosis bilaterally. No canal or foraminal narrowing No fracture or subluxation. No lytic or blastic bony lesion. No mass or adenopathy in the soft tissues of the neck. Calcified granuloma in the bilateral lung apices with pleural parenchymal scarring IMPRESSION: No cervical spine fracture or subluxation Remote calcified disc protrusions C3-4 through C5-6 Electronically signed by: Simone Murphy MD 09/13/2017 10:24 AM [facility]
--- NOTE | 2017-09-13 10:29 | CT ---
EXAM DESCRIPTION: CT head without contrast CLINICAL HISTORY: Recurrent fall. Trauma with headache COMPARISON: None. TECHNIQUE: Noncontrast spiral CT of the brain. This exam was performed according to our departmental dose-optimization program, which includes automated exposure control, adjustment of the mA and/or kV according to patient size and/or use of iterative reconstruction technique FINDINGS: No intracranial hemorrhage, infarction or mass lesion. Atherosclerotic vascular calcifications vertebral arteries and cavernous internal carotid arteries. Normal yee-white matter differentiation Ventricles are normal in size and configuration No calvarial or skullbase fracture. Scalp swelling likely contusion right frontoparietal. Small fluid collections subgaleal right frontal compatible with seroma or liquefied hematoma. Periorbital soft tissue swelling on the right. No intraorbital trauma. No fluid in the paranasal sinuses or mastoid air cells IMPRESSION: Negative acute traumatic intracranial noncontrast head CT. Scalp contusion right frontoparietal CT is insensitive for early evaluation of acute stroke. If there is clinical concern for acute ischemia, an MRI may be considered. Electronically signed by: Simone Murphy MD 09/13/2017 10:28 AM [facility]
--- NOTE | 2017-09-13 10:30 | RAD ---
EXAM DESCRIPTION: Pelvis, 2 views CLINICAL HISTORY: Recurrent falls. Pelvic pain FINDINGS/ IMPRESSION: Right total hip arthroplasty. No periprosthetic fracture or osteolysis. 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 No fracture of the pelvis Electronically signed by: Simone Murphy MD 09/13/2017 10:29 AM [facility]
--- NOTE | 2017-09-13 10:38 | RAD ---
EXAM DESCRIPTION: Right shoulder, 2 views CLINICAL HISTORY: Fall injury. Shoulder pain FINDINGS/ IMPRESSION: Moderate acromioclavicular osteoarthritis. No separation. Prominent subacromial enthesophyte Glenohumeral osteoarthritis with small marginal osteophyte inferior medial humeral head and glenoid No fracture. No dislocation. Visualized right lung is clear Electronically signed by: Simone Murphy MD 09/13/2017 10:37 AM [facility]
[2017-09-13] MEDS ORDERED: cefTRIAXone SODIUM 1 GM VIAL IM ONE (11:18)
[2017-09-13] MEDS ORDERED: FLUCONAZOLE 100 MG TAB PO ONE (11:18)
[2017-09-13] MEDS ORDERED: HYDROcodone 5MG/APAP 325MG 1 EA TAB PO ONE (11:20)
--- NOTE | 2017-09-13 12:24 | ED.PDOC ---
History of Present Illness - General Chief Complaint: Trauma Stated Complaint: fall Time Seen by Provider: 09/13/17 08:52 Source: patient Exam Limitations: no limitations - History of Present Illness Initial Comments: The patient is an 82-year-old female who fell down this morning out of her chair and laid on the floor for approximately 3-4 hours before she was found. The patient was unable to get up on her own. According to family she has been having progressive weakness over the last several months and she is scheduled to start physical therapy after the holidays. The patient is reporting some pain in her right shoulder and some pain above her right eye. She does have multiple small skin tears along the posterior aspect of her right forearm. She moves the hand and wrist and elbow well on that side. She is having some pain moving the right shoulder. There is no obvious palpable deformity of the shoulder. Passive range of motion appears to be preserved. She does have a large hematoma above her right eye. Extraocular movements appear to be intact. No laceration of the scalp. The patient is due for dialysis today. Timing/Duration: 4-6 hours Severity: moderate Improving Factors: nothing Worsening Factors: nothing Associated Symptoms: denies symptoms Allergies/Adverse Reactions: Allergies NO KNOWN ALLERGY Allergy (Verified 09/13/17 09:00) Home Medications: Ambulatory Orders Amitriptyline HCl 150 mg PO BEDTIME 10/31/16 Spironolactone 25 mg PO DAILY 10/31/16 Acetaminophen [Arthritis Pain] 650 mg PO PRN PRN 05/24/17 Ibuprofen [Motrin] 400 mg PO PRN PRN 05/24/17 Sevelamer Carbonate [Renvela] 1,600 mg PO TID 05/24/17 Cephalexin Monohydrate [Keflex] 500 mg PO Q8H #15 cap 09/13/17 Review of Systems - Review of Systems Constitutional: States: malaise, weakness - generalized EENTM: States: no symptoms reported Respiratory: States: no symptoms reported Cardiology: States: no symptoms reported Gastrointestinal/Abdominal: States: no symptoms reported Genitourinary: States: no symptoms reported Musculoskeletal: States: see HPI Skin: States: see HPI Neurological: States: headache - mild Endocrine: States: no symptoms reported All other Systems: No Change from Baseline Past Medical History (General) - Patient Medical History Hx Seizures: No Hx Stroke: No Hx Dementia: No Hx Asthma: No Hx of COPD: No Hx Cardiac Disorders: Yes - cardiac stents Hx Congestive Heart Failure: No Hx Pacemaker: No Hx Hypertension: Yes Hx Thyroid Disease: No Hx Diabetes: No Hx Gastroesophageal Reflux: No Hx Renal Disease: Yes - CRF - 1.5 yrs CAPD dialysis Hx Cancer: No Hx of HIV: No Hx Hepatitis C: No Hx MRSA: No Surgical History: other - Vaccination History Hx Tetanus, Diphtheria Vaccination: Yes Hx Influenza Vaccination: Yes Hx Pneumococcal Vaccination: Yes - Social History Hx Tobacco Use: No Hx Chewing Tobacco Use: No Hx Alcohol Use: No Hx Substance Use: No Hx Substance Use Treatment: No Hx Depression: No Hx Physical Abuse: No Hx Emotional Abuse: No Hx Suspected Abuse: No - Female History Patient is a Female of Child Bearing Age (10 -59 yrs old): No Patient : No Family Medical History - Family History Mother Family History: No Known Living Status: Hx Family Cancer: Yes - breast Physical Exam - Physical Exam General Appearance: Alert, Comfortable, No apparent distress Eye Exam: bilateral normal Ears, Nose, Throat: hearing grossly normal, normal pharynx, other - large periorbital hematoma on the right. No laceration. Extraocular movements are intact. Pupillary reaction is symmetrical. Neck: full range of motion, supple Respiratory: lungs clear, normal breath sounds, no respiratory distress, no accessory muscle use Cardiovascular/Chest: normal peripheral pulses, no edema, other - egular rate Peripheral Pulses: radial,right: 2+, radial,left: 2+, dorsalis pedis,right: 2+, dorsalis pedis,left: 2+ Gastrointestinal/Abdominal: non tender, soft Rectal Exam: deferred, other - the patient does have a 1.5 inch abrasion to her right buttock. Back Exam: normal inspection, no CVA tenderness, no vertebral tenderness Extremity: no pedal edema, normal capillary refill, other - see history of present illness. 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 she does have several areas of bruising. Comments: Vital Signs - 24 hr 09/13/17 09/13/17 08:45 10:08 Temperature 97.0 F L Pulse Rate [ 85 77 pulse ox] Respiratory 20 20 Rate Blood Pressure 151/79 165/86 [Left Arm] O2 Sat by Pulse 93 L 97 Oximetry Progress - Progress Progress: 09/13/17 12:26 the patient's 82-year-old female that had a fall in the middle of the night and spent the better part of the night on the floor. She has had increasing falls recently. She is to start physical therapy after the holidays. She does likely have a rotator cuff injury on the right. We are not placing this in a sling and she may yet need to use that hand to steady herself and prevent further falls. She does have skin tears to the right forearm that bear following. These have been dressed. She does have a large periorbital hematoma on the right. X-rays of the shoulder, chest, pelvis showed no acute changes. CT scan of the cervical spine shows multiple chronic degenerative changes but no acute trauma. CT scan of the head shows no intracranial hemorrhage but does of course show the periorbital/scalp hematoma. the patient does appear to have a small urinary tract infection and will be placed on Keflex for 5 days. Urine culture is being performed and this can be followed with her primary care doctor in 1 week. Her dialysis is being rescheduled until tomorrow at 1245. She does need to ambulate carefully. ER warnings were given for any acute worsening. She does have an abrasion to her right buttock that does need to be followed to make sure that there is no expansion of this wound over time. - Results/Orders Results/Orders: Laboratory Tests 09/13/17 09/13/17 09/13/17 09:37 09:37 10:26 WBC 10.3 RBC 3.40 L Hgb 11.8 L Hct 34.3 L MCV 100.9 H MCH 34.7 H MCHC 34.5 RDW 13.8 Plt Count 247 MPV 7.2 L Absolute Neuts (auto) 8.50 H Absolute Lymphs (auto) 1.20 Absolute Monos (auto) 0.70 Absolute Eos (auto) 0.00 Absolute Basos (auto) 0.00 Neutrophils % 81.8 H Lymphocytes % 11.4 L Monocytes % 6.5 Eosinophils % 0.0 L Basophils % 0.3 Sodium 136 Potassium 5.2 H Chloride 94 L Carbon Dioxide 24 Anion Gap 23.2 H BUN 71 H Creatinine 7.43 H* BUN/Creatinine Ratio 9.6 L Random Glucose 100 Serum Osmolality 292.9 Calcium 9.9 Total Bilirubin 0.4 AST 33 ALT 14 Alkaline Phosphatase 100 Serum Total Protein 7.3 Albumin 2.8 L Globulin 4.5 H Albumin/Globulin Ratio 0.6 L Urine Color Yellow Urine Appearance Cloudy H Urine pH 7.5 Ur Specific [place] 1.020 Urine Protein >=300 H Urine Glucose (UA) Negative Urine Ketones Negative Urine Blood Moderate H Urine Nitrite Negative Urine Bilirubin Negative Urine Urobilinogen 0.2 Ur Leukocyte Esterase Small H Urine RBC 10-20 H Urine WBC 10-20 H Ur Epithelial Cells 5-10 Urine Bacteria 3+ H chest x-ray shows chronic changes but no acute pneumonia, pneumothorax and no obvious fluid overload. Departure - Departure Clinical Impression: Fall at home Qualifiers: Encounter type: initial encounter Qualified Code(s): W19.XXXA - Unspecified fall, initial encounter; Y92.099 - Unspecified place in other non-institutional residence as the place of occurrence of the external cause Rotator cuff disorder Qualifiers: Laterality: right Qualified Code(s): M67.911 - Unspecified disorder of synovium and tendon, right shoulder Hematoma of scalp Qualifiers: Encounter type: initial encounter Qualified Code(s): S00.03XA - Contusion of scalp, initial encounter Urinary tract infection Qualifiers: Urinary tract infection type: acute cystitis Hematuria presence: without hematuria Qualified Code(s): N30.00 - Acute cystitis without hematuria Disposition: Discharge to Home or Self Care Condition: Fair Departure Forms: ED Discharge - Pt. Copy, Patient Portal Self Enrollment Diet: regular diet Activity: increase activity as tolerated, no pushing/pulling with affected limb Referrals: Simone Olmos MD [Primary Care Provider] - 1-2 Weeks Prescriptions: Cephalexin Monohydrate [Keflex] 500 mg PO Q8H #15 cap Home Medications: Ambulatory Orders Amitriptyline HCl 150 mg PO BEDTIME 10/31/16 Spironolactone 25 mg PO DAILY 10/31/16 Acetaminophen [Arthritis Pain] 650 mg PO PRN PRN 05/24/17 Ibuprofen [Motrin] 400 mg PO PRN PRN 05/24/17 Sevelamer Carbonate [Renvela] 1,600 mg PO TID 05/24/17 Cephalexin Monohydrate [Keflex] 500 mg PO Q8H #15 cap 09/13/17 Additional Instructions: the patient's 82-year-old female that had a fall in the middle of the night and spent the better part of the night on the floor. She has had increasing falls recently. She is to start physical therapy after the holidays. She does likely have a rotator cuff injury on the right. We are not placing this in a sling and she may yet need to use that hand to steady herself and prevent further falls. She does have skin tears to the right forearm that bear following. These have been dressed. She does have a large periorbital hematoma on the right. X-rays of the shoulder, chest, pelvis showed no acute changes. CT scan of the cervical spine shows multiple chronic degenerative changes but no acute trauma. CT scan of the head shows no intracranial hemorrhage but does of course show the periorbital/scalp hematoma. the patient does appear to have a small urinary tract infection and will be placed on Keflex for 5 days. Urine culture is being performed and this can be followed with her primary care doctor in 1 week. Her dialysis is being rescheduled until tomorrow at 1245. She does need to ambulate carefully. ER warnings were given for any acute worsening. She does have an abrasion to her right buttock that does need to be followed to make sure that there is no expansion of this wound over time.
[2017-09-13 13:16] VITALS: BP 175/67; O2SAT 92
== END 2017-09-13 13:16 | disposition home or self-care (01) ==
LOC: ER 08:41
DX: S00.03XA Contusion of scalp, initial encounter (principal); N30.00 Acute cystitis without hematuria; M67.911 Unspecified disorder of synovium and tendon, right shoulder; I12.0 Hypertensive chronic kidney disease with stage 5 chronic kidney disease or end stage renal disease; N18.6 End stage renal disease; Z99.2 Dependence on renal dialysis; W07.XXXA Fall from chair, initial encounter; Z91.81 History of falling; Y92.009 Unspecified place in unspecified non-institutional (private) residence as the place of occurrence of the external cause
CPT/HCPCS: 36415; 70450; 71010; 72125; 72170; 73030; 80053; 81001; 85025; 87086; J0696

== ENCOUNTER → 2017-10-06 | Outpatient (CLI) | payer MEDICARE | END | disposition home or self-care (01) | LOC: LAB.NP 11:56 | PROVIDERS: ATTEND Internal Medicine Nephrology | DX: N18.9 Chronic kidney disease, unspecified (principal); D63.1 Anemia in chronic kidney disease ==

== ENCOUNTER → 2017-10-18 | Outpatient (CLI) | payer MEDICARE | END | disposition home or self-care (01) | LOC: LAB.O 15:06 | PROVIDERS: ATTEND Internal Medicine Nephrology | DX: N18.9 Chronic kidney disease, unspecified (principal); D63.1 Anemia in chronic kidney disease ==

== ENCOUNTER → 2017-10-21 | Outpatient (CLI) | payer MEDICARE | LOC: GT 13:43 | PROVIDERS: ATTEND Family Medicine | DX: D64.9 Anemia, unspecified (principal) ==

== ENCOUNTER 2017-11-12 09:47 | Emergency (ER) | payer MEDICARE ==
[2017-11-12 10:09] VITALS: TEMP 98.8
--- NOTE | 2017-11-12 10:28 | ED.PDOC ---
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 stated that got up from her commode an hour ago and was about to get to her wheelchair slipped out of it then fell back of the head hitting a side table had dull headache after the incident was given Ibubprofen by the nurses who help her get back to her wheelchair.Denies LOC,remembers incident,no nausea/vomiting,no blurry vision.,no neck pains.Denies hip, back,leg pains.Hurts at the back of her head. Timing/Duration: 1-3 hours Severity: moderate Improving Factors: rest Worsening Factors: movement Associated Symptoms: other - pain back of head Allergies/Adverse Reactions: Allergies NO KNOWN ALLERGY Allergy (Verified 11/12/17 10:09) Home Medications: Ambulatory Orders Amitriptyline HCl 150 mg PO BEDTIME 10/31/16 Spironolactone 25 mg PO DAILY 10/31/16 Acetaminophen [Arthritis Pain] 650 mg PO PRN PRN 05/24/17 Ibuprofen [Motrin] 400 mg PO PRN PRN 05/24/17 Sevelamer Carbonate [Renvela] 1,600 mg PO TID 05/24/17 Cephalexin Monohydrate [Keflex] 500 mg PO Q8H #15 cap 09/13/17 Review of Systems - Review of Systems Constitutional: States: no symptoms reported EENTM: States: no symptoms reported Respiratory: States: no symptoms reported Cardiology: States: no symptoms reported Gastrointestinal/Abdominal: States: no symptoms reported Genitourinary: States: no symptoms reported Musculoskeletal: States: no symptoms reported Skin: States: no symptoms reported Neurological: States: headache Past Medical History (General) - Patient Medical History Hx Seizures: No Hx Stroke: No Hx Dementia: No Hx Asthma: No Hx of COPD: No Hx Cardiac Disorders: Yes - cardiac stents Hx Congestive Heart Failure: No Hx Pacemaker: No Hx Hypertension: Yes Hx Thyroid Disease: No Hx Diabetes: No Hx Gastroesophageal Reflux: No Hx Renal Disease: Yes - CRF - 1.5 yrs CAPD dialysis Hx Cancer: No Hx of HIV: No Hx Hepatitis C: No Hx MRSA: No Surgical History: other - colon surgery - Vaccination History Hx Tetanus, Diphtheria Vaccination: Yes Hx Influenza Vaccination: Yes Hx Pneumococcal Vaccination: Yes - Social History Hx Tobacco Use: No Hx Chewing Tobacco Use: No Hx Alcohol Use: No Hx Substance Use: No Hx Substance Use Treatment: No Hx Depression: No Hx Physical Abuse: No Hx Emotional Abuse: No Hx Suspected Abuse: No - Activities of Daily Living Care Home/Assisted Living (if applicable):: [facility] - Female History Patient : No Family Medical History - Family History Mother Family History: No Known Living Status: Hx Family Cancer: Yes - breast Physical Exam - Physical Exam General Appearance: Alert, Comfortable, No apparent distress Eye Exam: bilateral normal - with corrective glasses Ears, Nose, Throat: hearing grossly normal, normal ENT inspection Neck: non-tender, full range of motion, supple, other - no midline tenderness Respiratory: chest non-tender, lungs clear, normal breath sounds, no respiratory distress Cardiovascular/Chest: normal peripheral pulses, regular rate, rhythm, diastolic murmur - g3/6, systolic murmur - g3/6 Peripheral Pulses: radial,right: 2+, radial,left: 2+ Gastrointestinal/Abdominal: normal bowel sounds, non tender, soft, no organomegaly Back Exam: no CVA tenderness, no vertebral tenderness Extremity: non-tender, no pedal edema, no calf tenderness Neurologic: cook italian style 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 II-XII nml as tested, no motor/sensory deficits, alert, oriented x 3 Skin Exam: normal color, warm/dry Lymphatic: no adenopathy Progress - Progress Progress: 11/12/17 10:33 Last Vital Signs Temp 98.8 F 11/12/17 09:55 Pulse 64 11/12/17 09:55 Resp 20 11/12/17 09:55 BP 156/62 11/12/17 09:55 Pulse Ox 94 L 11/12/17 09:55 - EKG/XRAY/CT CT Ordered: Yes - head-no abnormalities Departure - Departure Clinical Impression: Fall against object Contusion of head Qualifiers: Encounter type: initial encounter Contusion of head detail: scalp Qualified Code(s): S00.03XA - Contusion of scalp, initial encounter Headache Qualifiers: Headache type: unspecified Headache chronicity pattern: unspecified pattern Intractability: not intractable Qualified Code(s): R51 - Headache Time of Disposition: 11:14 Disposition: Discharge to Home or Self Care Condition: Fair Departure Forms: ED Discharge - Pt. Copy, Patient Portal Self Enrollment Instructions: DI for Contusion Referrals: Simone Olmos MD [Primary Care Provider] - 1-2 Weeks Home Medications: Ambulatory Orders Amitriptyline HCl 150 mg PO BEDTIME 10/31/16 Spironolactone 25 mg PO DAILY 10/31/16 Acetaminophen [Arthritis Pain] 650 mg PO PRN PRN 05/24/17 Ibuprofen [Motrin] 400 mg PO PRN PRN 05/24/17 Sevelamer Carbonate [Renvela] 1,600 mg PO TID 05/24/17 Cephalexin Monohydrate [Keflex] 500 mg PO Q8H #15 cap 09/13/17 Additional Instructions: Continue with Ibuprofen 2-3 tablets 3 x a day for pain/headache;Return to emergency room as needed.
--- NOTE | 2017-11-12 11:03 | CT ---
Procedure: CT HEAD WITHOUT IV CONTRAST Exam Date: 11/12/2017 10:33 AM BUTT TRIMMER Ordering Provider: Migue Bentley Clinical Indication: fall/headache Comparison: None Technique: CT images of the head were obtained without contrast administration. Coronal and sagittal reformats were obtained. This exam was performed according to our departmental dose-optimization program which includes automated exposure control, adjustment of the mA and/or kV according to patient size and/or use of iterative reconstruction technique. Findings: There is no acute cortical infarction, hemorrhage, midline shift, mass effect, or hydrocephalus. Right parietal scalp contusion is present. There is no adjacent fracture. Patchy and confluent areas of diminished attenuation are seen involving the subcortical and periventricular white matter, presumable related to small vessel occlusive disease. Global parenchymal volume loss is present. Subcentimeter remote lacunar infarction involves the left anterior thalamus. The calvaria and skull base are unremarkable.. The secretions are present in the right sphenoid sinus. Impression: No acute intracranial traumatic injury. Right parietal scalp contusion without adjacent fracture. Senescent changes and remote left thalamic lacunar infarct. Mild paranasal sinus disease. Electronically signed by: Sveta Combs MD 11/12/2017 11:03 AM BUTT TRIMMER
[2017-11-12 11:48] VITALS: BP 169/63; O2SAT 100
== END 2017-11-12 11:16 | disposition home or self-care (01) ==
LOC: ER 09:47
DX: S00.03XA Contusion of scalp, initial encounter (principal); R51 Headache; I12.0 Hypertensive chronic kidney disease with stage 5 chronic kidney disease or end stage renal disease; N18.6 End stage renal disease; Z99.2 Dependence on renal dialysis; W05.0XXA Fall from non-moving wheelchair, initial encounter; Y92.129 Unspecified place in nursing home as the place of occurrence of the external cause

== ENCOUNTER → 2017-11-25 | Outpatient (CLI) | payer MEDICARE | LOC: GT 06:55 | PROVIDERS: ATTEND Family Medicine | DX: N18.6 End stage renal disease (principal); E78.00 Pure hypercholesterolemia, unspecified; R63.0 Anorexia ==

== ENCOUNTER → 2018-03-16 | Outpatient (CLI) | payer MEDICARE | LOC: GT 16:28 | PROVIDERS: ATTEND Family Medicine | DX: N39.0 Urinary tract infection, site not specified (principal) ==

== ENCOUNTER → 2018-03-27 | Outpatient (CLI) | payer MEDICARE | LOC: GMAM 16:35 | PROVIDERS: ATTEND Family Medicine | DX: R53.83 Other fatigue (principal) ==

== ENCOUNTER → 2018-11-22 | Outpatient (CLI) | payer MEDICARE ==
--- NOTE | 2018-11-23 10:28 | CT ---
EXAM DESCRIPTION: Chest w/o Contrast CLINICAL HISTORY: 83 years, Female, COUGH COMPARISON: Chest x-ray September 13, 2017 TECHNIQUE: Thin-section noncontrast axial CT images are obtained according to our protocol. Reconstructed MPR images are created and reviewed as well. FINDINGS: Lungs: Multiple calcified granulomas are present in the apices bilaterally. Small noncalcified nodule measures 5 mm in the posterior segment right upper lobe (axial image 34, series 4). Linear scarring is extensive in the upper lobes. Larger noncalcified nodules are seen in the right upper lobe above the minor fissure in the posterior segment measuring 1.3 cm and 1.5 cm and 7 mm (images 54 through 69, series 4). Differential considerations would include metastatic lung nodules. Clinical correlation recommended as to whether the patient could not tolerate biopsy. Soft tissue fullness in the right pulmonary hilum is thought to be enlarged pulmonary artery and pulmonary veins but infiltrating neoplasm or adenopathy cannot be excluded since no IV contrast was given. Small right pleural effusion is present. Mediastinum: Extensive mediastinal adenopathy is present with a large number of small lymph nodes. A large precarinal lymph node measures 9 mm and a large node along the left side of the main pulmonary artery measures 9 mm. Subcarinal node or cluster of nodes measures 1.3 x 1.7 cm. Other nodes are smaller. The heart is enlarged with extensive coronary arterial calcification. The amount of pericardial fluid appears normal. Main pulmonary artery is large as is the right pulmonary artery consistent with pulmonary hypertension. No aortic aneurysm.. Chest wall/axilla: No mass or adenopathy. Dense area in the right retroareolar breast with coarse calcification should be further evaluated with mammography and breast sonography. Lower neck/supraclavicular: No mass or adenopathy. Upper abdomen: Unremarkable upper abdominal viscera. Coronal and sagittal reformatted images confirm the findings. IMPRESSION: Multiple clustered nodules/masses in the right upper lobe posterior segment 7 mm to 1.5 cm. Extensive mediastinal adenopathy. Scattered pulmonary nodules, a few of which are noncalcified. Small right pleural effusion with patchy infiltrate or partial volume loss in the right lower lobe. Large heart with coronary calcification. This exam was performed according to our departmental dose-optimization program, which includes automated exposure control, adjustment of the mA and/or kV according to patient size and/or use of iterative reconstruction technique. Total DLP equals 492.92 mGycm. Electronically signed by: Efraín Orona MD 11/23/2018 10:25 AM LONG WINDER TENDER
== END ==
LOC: CT 13:42
PROVIDERS: ATTEND Family Medicine
DX: R05 Cough (principal); R91.8 Other nonspecific abnormal finding of lung field; J90 Pleural effusion, not elsewhere classified; R59.9 Enlarged lymph nodes, unspecified; I51.7 Cardiomegaly; I25.10 Atherosclerotic heart disease of native coronary artery without angina pectoris; M10.9 Gout, unspecified

== ENCOUNTER 2018-11-27 10:09 | Emergency (ER) | payer MEDICARE ==
[2018-11-27 10:34] VITALS: TEMP 97.1
--- NOTE | 2018-11-27 10:34 | ED.PDOC ---
History of Present Illness - General Chief Complaint: General Stated Complaint: weakness and SOB Time Seen by Provider: 11/27/18 10:14 Source: patient Exam Limitations: no limitations - History of Present Illness Initial Comments: Jes Harman 83 y/o female resident at [facility] stated that she had non productive cough and worsening SOB for the last 3 days.No fever or chills .She was treated with antibiotics outpatient but EMS brought her here with low heart rate and low Sao2.She was given 3L O2/nc and oxygen saturation went up Sao2 -95%. Timing/Duration: 1-3 hours Severity: moderate Improving Factors: other - see hpi Worsening Factors: other - see hpi Associated Symptoms: cough Allergies/Adverse Reactions: Allergies sodium pentothal Allergy (Uncoded 11/27/18 10:35) Home Medications: Ambulatory Orders Amitriptyline HCl 150 mg PO BEDTIME 10/31/16 Spironolactone 25 mg PO DAILY 10/31/16 Ibuprofen [Motrin] 400 mg PO PRN PRN 05/24/17 Sevelamer Carbonate [Renvela] 1,600 mg PO TID 05/24/17 Acetaminophen W/ Codeine [Tylenol W/ CODEINE #3] 1 ea PO Q4HR PRN 11/27/18 Albuterol Sulfate Nebs [Proventil Nebs] 2.5 mg INH Q4H PRN 11/27/18 Albuterol Sulfate Nebs [Proventil Nebs] 2.5 mg INH TID 11/27/18 Allopurinol [Zyloprim] 300 mg PO DAILY 11/27/18 Amlodipine Besylate 5 mg PO BID 11/27/18 Carboxymethylcellulose-Glyceri [Optive Sensitive] 2 ramon OP QID PRN 11/27/18 Carvedilol 25 mg PO BID 11/27/18 Cetirizine HCl [ZyrTEC] 10 mg PO DAILY 11/27/18 Chlorpheniramine-Phenylephrine [Advil Allergy & Congestio] 1 tab PO Q4H PRN 11/27/18 Clonidine HCl 0.1 mg PO Q8H PRN 11/27/18 Docusate Sodium [Colace Cap] 100 mg PO BID PRN 11/27/18 Docusate Sodium [Colace Cap] 100 mg PO DAILY 11/27/18 Fexofenadine HCl [Jolie Allergy] 180 mg PO DAILY 11/27/18 Fluconazole 150 mg PO DAILY 11/27/18 Nitroglycerin 0.4 mg Tab [Nitrostat] 0.4 mg SL Q5MIN PRN 11/27/18 Ondansetron HCl [Zofran] 8 mg PO Q8HR PRN 11/27/18 Pantoprazole Tablet [Protonix] 40 mg PO DAILY 11/27/18 Polyethylene Glycol 3350 [Miralax] 17 gm PO DAILY 11/27/18 Pravastatin Sodium 40 mg PO BEDTIME 11/27/18 Ranitidine HCl [Ranitidine 75] 75 mg PO DAILY 11/27/18 Umeclidinium-Vilanterol [Anoro Ellipta 62.5-25 Mcg/INH] 1 aer IN DAILY 11/27/18 Review of Systems - Review of Systems Constitutional: States: no symptoms reported EENTM: States: no symptoms reported Respiratory: States: see HPI Cardiology: States: see HPI Gastrointestinal/Abdominal: States: no symptoms reported Genitourinary: States: no symptoms reported Musculoskeletal: States: no symptoms reported Skin: States: no symptoms reported All other Systems: Reviewed and Negative, No Change from Baseline Past Medical History (General) - Patient Medical History Hx Seizures: No Hx Stroke: No Hx Dementia: No Hx Asthma: No Hx of COPD: No Hx Cardiac Disorders: Yes - cardiac stents Hx Congestive Heart Failure: No Hx Pacemaker: No Hx Hypertension: Yes Hx Thyroid Disease: No Hx Diabetes: No Hx Gastroesophageal Reflux: No Hx Renal Disease: Yes - CRF - 1.5 yrs CAPD dialysis Hx Cancer: No Hx of HIV: No Hx Hepatitis C: No Hx MRSA: No Surgical History: other - colon;cardiac stents - Vaccination History Hx Tetanus, Diphtheria Vaccination: Yes Hx Influenza Vaccination: Yes Hx Pneumococcal Vaccination: Yes - Social History Hx Tobacco Use: No Hx Chewing Tobacco Use: No Hx Alcohol Use: No Hx Substance Use: No Hx Substance Use Treatment: No Hx Depression: No Hx Physical Abuse: No Hx Emotional Abuse: No Hx Suspected Abuse: No - Female History Patient : No Family Medical History - Family History Mother Family History: No Known Living Status: Hx Family Cancer: Yes - breast Physical Exam - Physical Exam General Appearance: Alert, Comfortable, No apparent distress Eye Exam: bilateral other - decrease vision Ears, Nose, Throat: hearing grossly normal, normal ENT inspection, normal pharynx Neck: supple, normal inspection Respiratory: chest non-tender, lungs clear, no respiratory distress, rales, rhonchi Cardiovascular/Chest: normal peripheral pulses, regular rate, rhythm Gastrointestinal/Abdominal: non tender, soft, no organomegaly Back Exam: no CVA tenderness, no vertebral tenderness Extremity: no calf tenderness, pedal edema Neurologic: alert, oriented x 3 Skin Exam: normal color, warm/dry Lymphatic: no adenopathy Progress - Progress Progress: 11/27/18 10:43 Vital Signs - 8 hr 11/27/18 10:23 Temperature 97.1 F L Pulse Rate [ 56 L monitor] Respiratory 22 Rate Blood Pressure 148/56 [la] O2 Sat by Pulse 90 L Oximetry - Results/Orders Results/Orders: 11/27/18 10:37 EKG Assessment DAILY 11/27/18 10:40 B-TYPE NATRIURETIC PEPTIDE/BNP Stat CARDIAC PANEL,ER Stat HEPATIC FUNCTION PANEL Stat THYROID STIMULATING HORMONE Stat 11/27/18 10:45 EKG STAT 11/27/18 12:45 EKG STAT Laboratory Results - last 24 hr 11/27/18 11/27/18 10:40 10:40 WBC 7.6 RBC 2.92 L Hgb 10.2 L Hct 30.9 L MCV 105.8 H MCH 34.7 H MCHC 32.8 L RDW 15.3 H Plt Count 167 MPV 8.3 Absolute Neuts (auto) 4.90 Absolute Lymphs (auto) 1.50 Absolute Monos (auto) 0.60 Absolute Eos (auto) 0.40 Absolute Basos (auto) 0.10 Neutrophils % 65.3 Lymphocytes % 19.8 L Monocytes % 8.3 Eosinophils % 5.5 H Basophils % 1.1 Normal RBC Morphology Stain quality accept PT 12.0 H INR 1.20 H PTT (SP) 28.9 Sodium 137 Potassium 6.8 H* Chloride 95 L Carbon Dioxide 28 Anion Gap 20.8 H BUN 49 H Creatinine 6.05 H* BUN/Creatinine Ratio 8.1 L Random Glucose 115 H Serum Osmolality 287.7 Calcium 9.2 Magnesium 2.5 Total Bilirubin 0.6 Direct Bilirubin 0.1 Indirect Bilirubin 0.5 AST 16 ALT 10 Alkaline Phosphatase 72 Creatine Kinase 16 L B-Natriuretic Peptide 4960.0 H* Serum Total Protein 6.8 Albumin 2.8 L - EKG/XRAY/CT EKG: Jefry, Sinus, RBBB, Changed from - 11 Aug 2017 Comments: HR-48;complex pvc Departure - Departure Clinical Impression: Bradycardia with 31-40 beats per minute, ESRD (end stage renal disease) on dialysis, Hyperkalemia, diminished renal excretion Time of Disposition: 13:21 Disposition: Transfer to Hospital Condition: Fair Departure Forms: Patient Portal Self Enrollment Referrals: Simone Olmos MD [Primary Care Provider] - 1-2 Weeks Home Medications: Ambulatory Orders Amitriptyline HCl 150 mg PO BEDTIME 10/31/16 Spironolactone 25 mg PO DAILY 10/31/16 Ibuprofen [Motrin] 400 mg PO PRN PRN 05/24/17 Sevelamer Carbonate [Renvela] 1,600 mg PO TID 05/24/17 Acetaminophen W/ Codeine [Tylenol W/ CODEINE #3] 1 ea PO Q4HR PRN 11/27/18 Albuterol Sulfate Nebs [Proventil Nebs] 2.5 mg INH Q4H PRN 11/27/18 Albuterol Sulfate Nebs [Proventil Nebs] 2.5 mg INH TID 11/27/18 Allopurinol [Zyloprim] 300 mg PO DAILY 11/27/18 Amlodipine Besylate 5 mg PO BID 11/27/18 Carboxymethylcellulose-Glyceri [Optive Sensitive] 2 ramon OP QID PRN 11/27/18 Carvedilol 25 mg PO BID 11/27/18 Cetirizine HCl [ZyrTEC] 10 mg PO DAILY 11/27/18 Chlorpheniramine-Phenylephrine [Advil Allergy & Congestio] 1 tab PO Q4H PRN 11/27/18 Clonidine HCl 0.1 mg PO Q8H PRN 11/27/18 Docusate Sodium [Colace Cap] 100 mg PO BID PRN 11/27/18 Docusate Sodium [Colace Cap] 100 mg PO DAILY 11/27/18 Fexofenadine HCl [Jolie Allergy] 180 mg PO DAILY 11/27/18 Fluconazole 150 mg PO DAILY 11/27/18 Nitroglycerin 0.4 mg Tab [Nitrostat] 0.4 mg SL Q5MIN PRN 11/27/18 Ondansetron HCl [Zofran] 8 mg PO Q8HR PRN 11/27/18 Pantoprazole Tablet [Protonix] 40 mg PO DAILY 11/27/18 Polyethylene Glycol 3350 [Miralax] 17 gm PO DAILY 11/27/18 Pravastatin Sodium 40 mg PO BEDTIME 11/27/18 Ranitidine HCl [Ranitidine 75] 75 mg PO DAILY 11/27/18 Umeclidinium-Vilanterol [Anoro Ellipta 62.5-25 Mcg/INH] 1 aer IN DAILY 11/27/18 Transfer to Outside Facility - Transfer Information Accepting Provider:: Dr. Culp-TIM/ Accepting Facility: [facility] Reason for Transfer: required specialist not available - rn palliative care
--- NOTE | 2018-11-27 11:25 | RAD ---
EXAM DESCRIPTION: Chest,1 View CLINICAL HISTORY: 83 years Female, sob COMPARISON: September 13, 2017 TECHNIQUE: AP portable chest. FINDINGS: Lung volumes are small with moderate cardiomegaly and very prominent central bronchovascular markings consistent with mild overload and early congestive failure. A small amount of pleural blunting at the right lateral lung base suggests developing pleural effusion. Peripheral lung matamoros are essentially clear. No large areas of dense consolidation noted. Soft tissue fullness in the right paratracheal region appears unchanged from 2017 is felt to represent tortuous vessels are noted on noncontrast chest CT performed recently. IMPRESSION: Small lung volumes with cardiomegaly central vascular congestion and developing small right pleural effusion. Early volume overload cardiac decompensation suspected. Electronically signed by: Simone Naranjo MD 11/27/2018 11:22 AM [facility]
[2018-11-27] MEDS ORDERED: BUMETANIDE 0.25 MG/ML VIAL IV ONE (11:28)
[2018-11-27] MEDS ORDERED: INSULIN, REG.(HUMAN) 100 U/ML VIAL IV ONE (11:54)
[2018-11-27] MEDS ORDERED: SODIUM BICARBONATE 10MEQ/10ML 10 MEQ/10 ML SYG IV ONE (11:54)
[2018-11-27] MEDS ORDERED: CALCIUM GLUCONATE INJ 2 GM in SODIUM CHLORIDE 0.9% 100ML 100 ML IVPB ONE (11:54)
[2018-11-27] MEDS ORDERED: CALCIUM GLUCONATE INJ 1 GM/10 ML VIAL ONE (12:01)
[2018-11-27] MEDS ORDERED: SODIUM CHLORIDE 0.9% 100ML 100 ML IVPB ONE (12:02)
[2018-11-27] MEDS: DEXTROSE 50% 25 GM/50 ML SYG IV ONE ×2 (12:15→12:19)
[2018-11-27] MEDS ORDERED: SOD POLYSTYRENE SULFONATE 15 GM/60 ML BTTL ONE (13:30)
[2018-11-27] MEDS ORDERED: SOD POLYSTYRENE SULFONATE 15 GM/60 ML BTTL PO ONE (13:33)
[2018-11-27 13:53] VITALS: BP 131/52; O2SAT 90
== END 2018-11-27 13:51 | disposition short-term general hospital (02) ==
LOC: ER 10:09
DX: R00.1 Bradycardia, unspecified (principal); N18.6 End stage renal disease; E87.5 Hyperkalemia; I45.10 Unspecified right bundle-branch block; I49.3 Ventricular premature depolarization; R05 Cough; R06.02 Shortness of breath; I51.9 Heart disease, unspecified; I12.0 Hypertensive chronic kidney disease with stage 5 chronic kidney disease or end stage renal disease; Z99.2 Dependence on renal dialysis; Z95.5 Presence of coronary angioplasty implant and graft; Z79.899 Other long term (current) drug therapy; Z88.8 Allergy status to other drugs, medicaments and biological substances
CPT/HCPCS: 36415; 71045; 80048; 80076; 82550; 82553; 83880; 84443; 84484; 85025; 85610; 85730; 93005; J3490; J7050; J7799